=== PATIENT | male | born 1935 | race Caucasian/White ===

== ENCOUNTER 2017-04-22 10:02 | Outpatient (CLI) | payer MEDICARE, OTHER ==
--- NOTE | 2017-04-22 11:42 | MRI ---
MRI LUMBAR SPINE WITH AND WITHOUT GADOLINIUM CONTRAST: History: Low back pain with right leg radiculopathy, worsening for six years. Prior back surgery. FINDINGS: Images including the retroperitoneum show cysts arising from each kidney. Vertebral body heights are maintained. There is desiccation involving the vertebral discs and scatter ed discogenic endplate changes including Schmorl's nodes. Degenerative changes of the lower thoracic spine are apparent on the sagittal images. T12-L1: There is mild osteophytosis. The central canal and neural foramina are patent. L1-2: There is disc space narrowing. Circumferential degenerative changes result in mild stenosis of the central canal and each neural foramen. L2-3: There is disc space narrowing. Posterior disc bulge and circumferential degenerative changes re sult in moderate stenosis of the central canal. There is moderate right and severe left foraminal albert nosis. L3-4: There is disc space narrowing and minimal degenerative retrolisthesis. Operative changes includ e posterior decompression. Degenerative changes result in severe stenosis of each neural foramen. L4-5: There is disc space narrowing. Operative changes include posterior decompression. Degenerative changes result in severe right and moderate left foraminal stenoses. L5-S1: Grade I degenerative spondylolisthesis is again demonstrated. Operative changes result in post erior decompression. Degenerative changes result in moderate to severe stenosis of each neural forame n. IMPRESSION: 1. Post-operative changes of the lumbar spine. Degenerative changes result in multilevel significant foraminal stenosis, as detailed above, left greater than right. POS: [facility]
== END 2017-04-22 10:03 | disposition home or self-care (01) ==
LOC: SCSMRI 10:02
PROVIDERS: ATTEND Surgery
DX: M47.26 Other spondylosis with radiculopathy, lumbar region (principal); M99.43 Connective tissue stenosis of neural canal of lumbar region; Z98.890 Other specified postprocedural states
CPT/HCPCS: 72158

== ENCOUNTER 2018-08-03 13:03 | Outpatient (CLI) | payer MEDICARE, OTHER ==
--- NOTE | 2018-08-03 15:07 | MRI ---
Exam: Brain MRI with and without contrast HISTORY: Ventriculomegaly. Hydrocephalus. COMPARISON: 02/25/2016 FINDINGS: Gradient echo sequence: No hemorrhage Calvarium: Appropriate T1 marrow signal intensity Midline brain parenchyma: Unremarkable Cerebrum:Redemonstration of T2 and FLAIR white matter hyperintensities which are likely due to chroni c small vessel ischemic change. No mass, mass effect or midline shift. Cortical helton-white matter dif ferentiation is preserved. Ventricles: Persistent dilatation of the ventricular system, unchanged from the previous examination. Sinuses and mastoid air cells: Right maxillary sinus mucosal disease. Diffusion: Central arterial flow is maintained. Absent restricted diffusion. Postcontrast images: No pathologic enhancement of the brain parenchyma. IMPRESSION: 1. Absent restricted diffusion. No acute infarct. 2. Stable brain volume. Chronic small vessel ischemic changes identified. 3. Stable configuration the ventricular system. The prominence of the ventricular system is slightly greater than that expected for the overall degree of brain volume loss.
== END 2018-08-03 13:04 | disposition home or self-care (01) ==
LOC: SCSMRI 13:03
PROVIDERS: ATTEND Family Medicine
DX: G91.2 (Idiopathic) normal pressure hydrocephalus (principal); I67.82 Cerebral ischemia
CPT/HCPCS: 70553